=== PATIENT | male | born 2000 | race Caucasian/White ===

== ENCOUNTER 2024-07-31 12:08 | Emergency (ER) | payer SELFPAY ==
[2024-07-31 12:08] VITALS: BP 118/72; PULSE 89; RESP 16; TEMP 36.7; O2SAT 100; BMI 20.9
--- NOTE | 2024-07-31 12:43 | EX.ED.VIS.EY ---
HPI History of Present Illness Chief Complaint: Eye Problem Detail of Chief Complaint: Left eye irritation and discharge. Informant: patient Onset/Context/Timing Location: Left Eye Onset: Days Context: Gradual Onset Timing: Continuous Current Severity: Mild Maximum Severity: Mild Associated Symptoms Associated Symptoms - Eyes: Crusting, Drainage and Redness History of injury: No Visual correction: Glasses Narrative Narrative: Healthy 23-year-old male. Wears glasses. No eye history. No contacts. 2 of his daughters recently had pinkeye. Now he and his they believe they have it. Says his eyes been irritated. Watering and crusting over in the mornings. No visual change. No trauma. No foreign body sensation. Prior similar symptoms: No Recent Illness/Hospitalization: No PFSH PFSH Medical History no medical history no medical history Allergy/AdvReac Type Severity Reaction Status Date / Time No Known Allergies Allergy Verified 07/31/24 12:09 Family History no significant family his Surgical History no surgical history no surgical history Social History Smoking Status: Current some day smoker tobacco type: e-cigarettes ROS ROS ED ROS Narrative Denies recent illness. Constitutional Constitutional ED: Denies chills or fever(s) Eyes Eyes: Denies blurry vision, change in vision or diplopia ENT ENT ED: Denies ear pain Cardiovascular Cardiovascular: Denies chest pain Respiratory/Chest Respiratory/Chest: Denies cough or dyspnea Gastrointestinal Gastrointestinal: Denies abdominal pain Genitourinary Genitourinary ED: Denies dysuria or hematuria Musculoskeletal Musculoskeletal: Denies arthralgias Integumentary Denies abscess or Abrasions Neurologic Neurologic: Denies headache(s) Psychiatric Psychiatric: Denies anxiety or depression Endocrine Endocrinology: Denies polydipsia, polyphagia or polyuria Hematologic/Lymphatic Hematologic/Lymphatic: Denies easy bleeding Allergic/Immunologic Allergic/Immunologic ED: Denies mouth swelling EXAM Physical Exam Narrative Exam Narrative: 20-year-old male vital signs stable afebrile. No distress. H EENT exam pupils round reactive light. Left eye is injected. Right does not. Currently no discharge. Upper and lower lids are not swollen. No foreign body. No corneal abrasion noted. Exam is consistent with pinkeye. There is no orbital or periorbital cellulitis. No preauricular lymphadenopathy. Lungs clear. Heart regular rhythm. Otherwise exam unremarkable. Const Vital Signs: 07/31/24 12:08 Temperature 98.1 F Temperature Source Temporal Pulse Rate 89 Respiratory Rate 16 Blood Pressure 118/72 Blood Pressure Mean 87 Pulse Ox 100 Oxygen Delivery Method Room Air Positive well nourished and well developed; Negative for obese, cachectic, contractures or unkempt General Appearance ED: well developed; Negative for unkempt, cachectic or contractures Nutritional Appearance: Negative for cachectic or obese HEENT atraumatic; Negative for trauma or tenderness Nose: external nose normal and nares normal Neck no lymphadenopathy, supple and no JVD General: Negative for tenderness Resp normal respiratory effort, no retractions, no use of accessory muscles and clear to auscultation bilaterally Cardio regular rate, regular rhythm, S1 normal heart sound, S2 normal heart sound and no murmurs GI non-tender, non-distended and no masses Back/Spine no CVA tenderness Extremity normal to inspection Neuro oriented x3, CN's II-XII intact bilaterally and moves all extremities Sensorium / Orientation: alert, oriented to person, oriented to place and oriented to time Motor Exam: strength 5/5 throughout Psych Appearance: Negative for unkempt Attitude: No agitated Mood & Affect: Negative for depressed, anxious or tearful Skin no wounds Lesions: no lesions Rashes: no rashes MDM MDM MDM Narrative Medical decision making narrative: Healthy 23-year-old with left eye viral conjunctivitis or pinkeye. Bacitracin ophthalmic ointment. Discharged home. Handwashing. Follow-up with ophthalmology if not improving. Discharge Plan Triage Chief Complaint: Eye Problem ED Provider: Marcelino Mcneill Dx/Rx/DC Orders Clinical Impression: Acute viral conjunctivitis Instructions: ED Conjunctivitis, Viral Primary Care Provider: NOT,DEFINED Referrals: Ned Guidry MD [Med Staff - Active Staff] - 3-5 Days if not improving NOT,DEFINED [Primary Care Provider] - Activity Restrictions/Additional Instructions: Your viral infection of your left eye. Warm compresses to decrease the crusting. Tylenol and or Motrin for pain. Do not rub your eye. Bacitracin ophthalmic ointment twice a day till gone. Follow-up with the eye doctor if not improving. This is highly contagious. Wash your hands thoroughly. Print Language: Lithuanian Disposition Disposition: Home, Self Care
[2024-07-31] MEDS: Bacitracin/Polymin B Sulfate 3.5 GM OPTH.TUBE 1 APPLIC LEFT EYE (13:01)
[2024-07-31 13:04] VITALS: BP 118/72; PULSE 89; RESP 16; TEMP 36.7; O2SAT 100
== END 2024-07-31 13:04 | disposition home or self-care (01) ==
LOC: ED 12:48
PROVIDERS: Emergency Provider Emergency Medicine; Referring Provider Emergency Medicine; Visit Provider Emergency Medicine
DX: B30.9 Viral conjunctivitis, unspecified (principal); F17.290 Nicotine dependence, other tobacco product, uncomplicated
CPT/HCPCS: 99282

== ENCOUNTER 2024-11-10 10:12 | Emergency (ER) | payer SELFPAY ==
[2024-11-10 10:13] VITALS: BP 138/78; PULSE 105; RESP 16; TEMP 36.7; O2SAT 98; BMI 20.7
--- NOTE | 2024-11-10 10:42 | EX.ED.VIS.UR ---
HPI HPI - URI History of Present Illness Chief Complaint: Cold Sx Informant: patient Onset/Context/Timing Onset: Yesterday Context: Gradual Onset Timing: Continuous Quality: Tightness Location: Chest Worsened by: - (Nothing) Relieved by: - (Warm, cold shower) Associated Symptoms Associated Symptoms: Positive for Headache and Sinus Pressure Narrative Narrative: Patient presents with fever, cough, and shortness of breath that has been getting worse since yesterday. Patient states his fever has been up to 103 at home. Patient states he has been having some tightness in his chest. Patient states that symptoms have gradually gotten worse. Patient admits to an episode of nausea and vomiting this morning. Patient denies any hematemesis or coffee-ground emesis. Patient states he is able to cough up occasional sputum. Patient admits to some sinus pressure and congestion. ROS ROS ED Constitutional Constitutional ED: Reports fever(s); Denies chills Eyes Eyes: Denies blurry vision or change in vision ENT ENT ED: Denies rhinorrhea or sore throat Cardiovascular Cardiovascular: Denies chest pain or palpitations Respiratory/Chest Respiratory/Chest: Reports cough and dyspnea Gastrointestinal Gastrointestinal: Reports nausea and vomiting Genitourinary Genitourinary ED: Denies dysuria or hematuria Musculoskeletal Musculoskeletal: Reports back pain and neck pain Integumentary Denies abscess or rash Neurologic Neurologic: Denies headache(s) or weakness Allergic/Immunologic Allergic/Immunologic ED: Denies mouth swelling or urticaria PFSH PFSH Medical History no medical history no medical history Allergy/AdvReac Type Severity Reaction Status Date / Time No Known Allergies Allergy Verified 11/10/24 10:15 Family History no significant family his Surgical History Hx of tonsillectomy Social History (Updated 11/10/24 @ 11:14 by Niru Crawford) household members: family current occupational status: employed Smoking Status: Current some day smoker tobacco type: e-cigarettes EXAM Physical Exam Const Vital Signs: 11/10/24 10:13 11/10/24 11:15 11/10/24 12:13 Temperature 98.1 F Temperature Source Temporal Pulse Rate 105 H 98 Respiratory Rate 16 18 Respiratory Effort Normal Non-Labored Respiratory Pattern Normal Blood Pressure 138/78 H Blood Pressure Mean 98 Pulse Ox 98 Oxygen Delivery Method Room Air Room Air Positive well nourished and well developed General Appearance ED: well developed and NAD HEENT Reports moist mucous membranes normocephalic and atraumatic Neck supple and no JVD Resp normal respiratory effort and clear to auscultation bilaterally Cardio Rate: regular rate Rhythm: regular rhythm GI non-tender and non-distended Palpation: soft Extremity normal to inspection Neuro oriented x3, CN's II-XII intact bilaterally and no sensory deficits noted Sensorium / Orientation: alert Motor Exam: strength 5/5 throughout Psych mental status grossly normal MDM MDM MDM Narrative Medical decision making narrative: Differential diagnosis includes bronchitis, pneumonia, and viral upper respiratory infection. Chest x-ray will be obtained to assess for pneumonia or bronchitis. COVID-19, influenza, and RSV PCR will be obtained to assess for viral upper respiratory infection. Lab Data Lab results narrative: COVID-19 PCR was reviewed and was negative. Influenza PCR was reviewed and was positive for influenza A and negative for influenza B. RSV PCR was reviewed and was negative. Radiography Chest X-Ray - ED: 2 View, Read by ED Physician, Read by Radiologist and No Acute Disease Diagnostic Testing: Clinical Impression(s) from Imaging Studies Chest X-Ray 11/10/24 10:54 IMPRESSION: No acute abnormality is seen. Reading Location: [facility] and lateral chest x-ray was obtained. There are 2 views. On my independent interpretation, lung levin are clear. There is normal cardiac silhouette. Bony thorax is normal. There is no acute process noted. Radiologist also interpreted the x-ray and agrees. Treatment and Re-Evaluation Narrative: Nicotine cessation was discussed. Patient was advised of his findings. Patient was instructed to drink plenty of fluids. Patient was instructed to take Tylenol or ibuprofen as needed for any aches or fevers. Patient was instructed to follow-up with his primary care physician in 5 to 7 days. Patient was instructed to return if worse in any way. Patient understood and was agreeable with the plan. All questions were answered. Discharge Plan Triage Chief Complaint: Cold Sx ED Provider: Low Arnold Dx/Rx/DC Orders Clinical Impression: Influenza A, Nicotine vapor product user Instructions: ED Influenza (Adult) Primary Care Provider: Care Physician,No Primary Referrals: Alka Huber MD [Med Staff - Library Services Assistant] - 5-7 Days Care Physician,No Primary [Primary Care Provider] - Print Language: Khmer Disposition Disposition: Home, Self Care
--- NOTE | 2024-11-10 10:54 | RAD_ITS ---
PROCEDURE: CHEST PA AND LATERAL REASON FOR EXAM: COUGH Flu-like symptoms. TECHNIQUE: Frontal and lateral views of the chest. COMPARISON: None. FINDINGS: The heart is nonenlarged. The lungs are clear. The bones are unremarkable. RAD/Chest PA and Lateral IMPRESSION: No acute abnormality is seen. Reading Location: [id number]
[2024-11-10 12:13] VITALS: PULSE 98; RESP 18
--- NOTE | 2024-11-10 12:48 | ED.RN ---
Patient given ice pack per patients family members request
[2024-11-10 13:17] VITALS: BP 138/78; PULSE 98; RESP 18; TEMP 36.7; O2SAT 98
== END 2024-11-10 13:21 | disposition home or self-care (01) ==
PROVIDERS: Emergency Provider Emergency Medicine; Visit Provider Emergency Medicine
DX: J10.1 Influenza due to other identified influenza virus with other respiratory manifestations (principal); F17.290 Nicotine dependence, other tobacco product, uncomplicated
CPT/HCPCS: 71046; 87631; 99282